=== PATIENT | male | born 1960 | race Caucasian/White ===

== ENCOUNTER 2020-09-24 19:55 | Outpatient (REF) | payer MEDICAID, SELFPAY ==
[2020-09-24 21:19] LABS: Abs Immature Grans 0.01 10^3/uL (0.0-0.06); Absolute Basophil Count 0.04 10^3/uL (0.0-0.2); Absolute Eosinophil Count 0.12 10^3/uL (0.0-0.7); Absolute Lymphocyte Count 1.02 10^3/uL (1.2-3.4); Absolute Monocyte Count 0.36 10^3/uL (0.1-0.8); Absolute Neutrophil Count 4.53 10^3/uL (1.2-6.7); Basophils % 0.7; HCT 48.1 % (40.0-50.0); HGB 16.1 g/dL (13.5-17.5); Immature Grans % 0.2; Lymphocytes % 16.8; MCH 31.1 pg (27.0-33.0); MCHC 33.5 % (32.0-36.0); MPV 9.3 fL (8.0-11.0); Monocytes % 5.9; Neutrophils % 74.4; Nucleated RBC 0 %; Platelet Count 178 10^3/uL (130-400); RBC 5.17 10^6/uL (4.36-5.78); RDW 12.7 % (11.8-14.1); RDW-SD 43.7 fL; WBC 6.08 10^3/uL (4.4-10.8)
[2020-09-24 21:49] LABS: ALT 38 U/L (16-63); AST 24 U/L (15-37); Albumin 4.5 g/dL (3.4-5.0); Alkaline Phosphatase 84 U/L (46-116); Anion Gap 10.2 mmol/L (3-11); BUN 15 mg/dL (7-18); Bilirubin, Total 0.8 mg/dL (0.2-1.0); CO2 24.8 mmol/L (21.0-32.0); CREATININE 1.17 mg/dL (0.70-1.30); Calcium 9.3 mg/dL (8.5-10.1); Chloride 105 mmol/L (98-107); Glucose 88 mg/dL (74-106); Lipase 90 U/L (73-393); Potassium 4.3 mmol/L (3.5-5.1); Sodium 140 mmol/L (136-145)
== END 2020-09-24 20:15 ==
LOC: NCHCN 19:55
PROVIDERS: PCP Internal Medicine; Visit Provider Nurse Practitioner Family
DX: R10.9 Unspecified abdominal pain (principal)
CPT/HCPCS: 80053; 83690; 85025

== ENCOUNTER 2020-11-16 16:22 | Outpatient (REF) | payer MEDICAID, SELFPAY ==
[2020-11-16 21:30] LABS: CEA 0.6 ng/mL (See Note)
== END 2020-11-16 16:42 ==
LOC: NCHCN 16:22
PROVIDERS: PCP Internal Medicine; Visit Provider Nurse Practitioner Family
DX: C20 Malignant neoplasm of rectum (principal); N32.9 Bladder disorder, unspecified
CPT/HCPCS: 82378

== ENCOUNTER 2021-04-15 11:08 | Outpatient (REF) | payer MEDICAID, SELFPAY ==
[2021-04-15 13:10] LABS: Abs Immature Grans 0.01 10^3/uL (0.0-0.06); Absolute Basophil Count 0.02 10^3/uL (0.0-0.2); Absolute Eosinophil Count 0.15 10^3/uL (0.0-0.7); Absolute Lymphocyte Count 0.54 10^3/uL (1.2-3.4); Absolute Monocyte Count 0.29 10^3/uL (0.1-0.8); Absolute Neutrophil Count 2.23 10^3/uL (1.2-6.7); Basophils % 0.6; Eosinophils % 4.6; HCT 43.6 % (40.0-50.0); HGB 14.2 g/dL (13.5-17.5); Immature Grans % 0.3; Lymphocytes % 16.7; MCH 29.9 pg (27.0-33.0); MCHC 32.6 % (32.0-36.0); MCV 91.8 fL (80-95); MPV 8.9 fL (8.0-11.0); Neutrophils % 68.8; Nucleated RBC 0 %; Platelet Count 160 10^3/uL (130-400); RBC 4.75 10^6/uL (4.36-5.78); RDW-SD 43.8 fL; WBC 3.24 10^3/uL (4.4-10.8)
[2021-04-15 13:20] LABS: ALT 38 U/L (16-63); AST 24 U/L (15-37); Alkaline Phosphatase 101 U/L (46-116); Anion Gap 9.2 mmol/L (3-11); BUN 15 mg/dL (7-18); Bilirubin, Total 0.5 mg/dL (0.2-1.0); CO2 27.8 mmol/L (21.0-32.0); CREATININE 0.9 mg/dL (0.70-1.30); Calcium 9.4 mg/dL (8.5-10.1); Chloride 106 mmol/L (98-107); Glucose 90 mg/dL (74-106); Potassium 4.4 mmol/L (3.5-5.1); Sodium 143 mmol/L (136-145); Total Protein 7.2 g/dL (6.4-8.2)
[2021-04-15 22:51] LABS: CEA <2.0 ng/mL (See Note)
== END 2021-04-15 11:09 | disposition home or self-care (01) ==
LOC: LBN 11:08
PROVIDERS: PCP Internal Medicine; Visit Provider Internal Medicine Hematology & Oncology
DX: C20 Malignant neoplasm of rectum (principal)
CPT/HCPCS: 80053; 82378; 85025